=== PATIENT | female | born 1950 | race Caucasian/White ===

== ENCOUNTER 2020-06-08 06:46 | Day surgery (SDC) | payer MEDICARE ==
[2020-06-08 08:11] VITALS: BP 124/78
[2020-06-08 08:35] VITALS: BMI 31.6
[2020-06-08 08:37] VITALS: TEMP 97.8
[2020-06-08 08:46] LABS: Anion Gap 13 mmol/L (10-20); BUN (Urea Nitrogen) 13 mg/dL (9.8-20.1); Calc. Creatinine Clearance 96 mL/min (70-130); Calcium 9.3 mg/dL (7.8-10.44); Carbon Dioxide 27 mmol/L (23-31); Chloride 107 mmol/L (98-107); Glucose 101 mg/dL (80-115); Sodium 143 mmol/L (136-145)
[2020-06-08 08:55] LABS: SARS-CoV-2 NAA Rapid Test Not Detected (NotDetected)
[2020-06-08] MEDS ORDERED: PROPOFOL 20 ML ONE (09:00)
[2020-06-08] MEDS ORDERED: Lidocaine 1% PF 5 ML VIAL ONE (09:00)
[2020-06-08] MEDS ORDERED: FLU VACC QS2020-21(65YR UP)/PF 240 MCG/0.7 ML SYRINGE IM ONE (09:15)
[2020-06-08 10:27] LABS: #Eosinphils 0.1 10x3/uL (0.0-0.5); #Monocytes 0.5 10x3/uL (0.0-1.1); #Neutrophils 1.6 10x3/uL (1.5-8.4); %Basophils 0.5 % (0.0-2.0); %Eosinophils 2.7 % (0.0-6.0); %Lymphocytes 40.6 % (18.0-47.0); %Monocytes 13.4 % (0.0-10.0); %Neutrophils 42.5 % (40.0-75.0); Hemoglobin 13.1 g/dL (12.0-15.5); Mean Corpuscular HGB CONC 31.9 g/dL (32.0-36.0); Mean Corpuscular Hemoglobin 28.8 pg (27.0-33.0); Mean Corpuscular Volume 90.3 fl (81.6-98.3); Platelet Count 250 10x3/uL (150-450); RBC Distribution Width 13.6 % (11.5-14.5); Red Blood Cell (RBC) Count 4.55 10x6/uL (3.90-5.03); White Blood Cell (WBC) Count 3.7 10x3/uL (3.5-10.5)
[2020-06-08 10:36] LABS: ALT (SGPT) 14 U/L (8-55); AST (SGOT) 15 U/L (5-34); Albumin 4.2 g/dL (3.4-4.8); Alkaline Phosphatase 79 U/L (40-110); Bilirubin, Total 0.5 mg/dL (0.2-1.2); Globulin 2.8 g/dL (2.4-3.5)
[2020-06-08 10:42] LABS: INR-International Normal Ratio 1.1; PTT 31.4 sec (22.0-33.0); Prothrombin Time 11.1 sec (9.5-12.1)
== END 2020-06-08 10:30 | disposition home or self-care (01) ==
LOC: CSHSDC 06:46
PROVIDERS: ATTEND Specialist
DX: I48.0 Paroxysmal atrial fibrillation (principal); E78.5 Hyperlipidemia, unspecified; I25.10 Atherosclerotic heart disease of native coronary artery without angina pectoris; K21.9 Gastro-esophageal reflux disease without esophagitis; E66.9 Obesity, unspecified; Z79.899 Other long term (current) drug therapy; Z79.01 Long term (current) use of anticoagulants; Z79.84 Long term (current) use of oral hypoglycemic drugs; Z20.822 Contact with and (suspected) exposure to COVID-19
CPT/HCPCS: 71045; 80053; 85025; 85610; 85730; 92960; 93005; U0002; 93010; J2704

== ENCOUNTER → 2020-06-11 | Day surgery (SDC) | payer MEDICARE ==
[~2020-06-11] MED LIST: Acetaminophen 500 MG TAB ONE; Adenosine 6 MG/2 ML VIAL ONE; Fentanyl 100 MCG/2 ML VIAL ONE; Heparin 10,000 UNITS/ 10 ML VIAL ONE; Lidocaine 1% (PF) 30 ML VIAL ONE; Lidocaine 1% PF 5 ML VIAL ONE; Midazolam HCl 2 mg/2 ml Vial ONE; Nitroglycerin 50 MG/250 ML BOT 250 ML ONE; Ondansetron PF 4 MG/2 ML Vial ONE; Verapamil 5 MG/2 ML VIAL ONE; hydrALAZINE 20 MG/ML VIAL ONE
[2020-06-11 12:02] VITALS: BMI 31.7
[2020-06-11 12:03] VITALS: BP 154/93; TEMP 96.9
== END ==
LOC: CSHCCL 11:11
PROVIDERS: ATTEND Specialist
DX: I25.119 Atherosclerotic heart disease of native coronary artery with unspecified angina pectoris (principal); I48.0 Paroxysmal atrial fibrillation; E78.5 Hyperlipidemia, unspecified; E66.9 Obesity, unspecified; Z95.5 Presence of coronary angioplasty implant and graft
CPT/HCPCS: 36140; 93458; 99152; 99153; C1760; J0153; J0360; J1644; J2001; J2250; J2405; J3010

== ENCOUNTER 2021-01-08 18:43 | Emergency (ER) | payer MEDICARE ==
[2021-01-08 19:49] LABS: Hemoglobin 10.7 g/dL (12.0-15.5); Mean Corpuscular HGB CONC 31.9 g/dL (32.0-36.0); Mean Corpuscular Hemoglobin 29.8 pg (27.0-33.0); Mean Corpuscular Volume 93.3 fl (81.6-98.3); Platelet Count 173 10x3/uL (150-450); Red Blood Cell (RBC) Count 3.59 10x6/uL (3.90-5.03)
[2021-01-08 20:04] LABS: ALT (SGPT) 13 U/L (8-55); AST (SGOT) 20 U/L (5-34); Albumin 4.2 g/dL (3.4-4.8); Alkaline Phosphatase 68 U/L (40-110); Anion Gap 15 mmol/L (10-20); BUN (Urea Nitrogen) 13 mg/dL (9.8-20.1); Bilirubin, Total 0.5 mg/dL (0.2-1.2); Calc. Creatinine Clearance 0 mL/min (70-130); Calcium 8.8 mg/dL (7.8-10.44); Carbon Dioxide 23 mmol/L (23-31); Chloride 108 mmol/L (98-107); Globulin 2.5 g/dL (2.4-3.5); Glucose 104 mg/dL (80-115); Potassium 3.9 mmol/L (3.5-5.1); Protein, Total 6.7 g/dL (5.8-8.1); Sodium 142 mmol/L (136-145)
[2021-01-08 20:28] LABS: Band 1 % (5-11); Lymphocytes 15 % (21-51); Monocytes 16 % (0-10); Neutrophil 68 % (42-75)
[2021-01-08 20:29] LABS: RBC Morphology Normal
[2021-01-08 20:30] LABS: Platelet Morphology Comment Appears Adequate
== END 2021-01-08 21:59 | disposition home or self-care (01) ==
LOC: CSHERS 18:43
DX: R07.2 Precordial pain (principal); I48.91 Unspecified atrial fibrillation
CPT/HCPCS: 36415; 71045; 80053; 83880; 84443; 85025; 93005; 93010

== ENCOUNTER 2022-09-17 09:43 | Outpatient (CLI) | payer MEDICARE ==
[2022-09-17] MEDS ORDERED: Iopamidol 370 76% 100 ML VIAL ONE (11:07)
== END 2022-09-17 09:44 | disposition home or self-care (01) ==
LOC: CSHCT 09:43
PROVIDERS: ATTEND Family Medicine
DX: N39.0 Urinary tract infection, site not specified (principal); R91.8 Other nonspecific abnormal finding of lung field; K57.30 Diverticulosis of large intestine without perforation or abscess without bleeding; K59.00 Constipation, unspecified; Z90.710 Acquired absence of both cervix and uterus
CPT/HCPCS: 74178; 82565; Q9967

== ENCOUNTER 2023-01-29 09:40 | Outpatient (CLI) | payer MEDICARE | END 2023-01-29 09:41 | disposition home or self-care (01) | LOC: CSHMAMMO 09:40 | PROVIDERS: ATTEND Family Medicine | DX: M85.80 Other specified disorders of bone density and structure, unspecified site (principal); Z78.0 Asymptomatic menopausal state | CPT/HCPCS: 77080 ==

== ENCOUNTER 2023-03-03 08:34 | Outpatient (CLI) | payer MEDICARE ==
[2023-03-03] MEDS ORDERED: Iopamidol 300 61% 100 ML VIAL FS ONE (11:29)
== END 2023-03-03 08:35 | disposition home or self-care (01) ==
LOC: CSHCT 08:34
PROVIDERS: ATTEND Family Medicine
DX: R91.1 Solitary pulmonary nodule (principal); I25.10 Atherosclerotic heart disease of native coronary artery without angina pectoris
CPT/HCPCS: 71270; 82565

== ENCOUNTER 2025-01-11 09:04 | Outpatient (CLI) | payer MEDICARE | END 2025-01-11 09:05 | disposition home or self-care (01) | LOC: CSHWCC 09:04 | PROVIDERS: ATTEND Nurse Practitioner Family | DX: L89.892 Pressure ulcer of other site, stage 2 (principal); L20.9 Atopic dermatitis, unspecified | CPT/HCPCS: 97597; G0463; 99213 ==

== ENCOUNTER 2025-01-25 08:37 | Outpatient (CLI) | payer MEDICARE | END 2025-01-25 08:38 | disposition home or self-care (01) | LOC: CSHWCC 08:37 | PROVIDERS: ATTEND Nurse Practitioner Family | DX: L89.892 Pressure ulcer of other site, stage 2 (principal); L20.9 Atopic dermatitis, unspecified | CPT/HCPCS: 97597 ==

== ENCOUNTER 2025-01-29 20:24 | Emergency (ER) | payer MEDICARE ==
[2025-01-29 21:39] LABS: Hematocrit 36.9 % (34.9-44.5); Hemoglobin 12.5 g/dL (12.0-15.5); Mean Corpuscular Hemoglobin 30.6 pg (27.0-33.0); Mean Corpuscular Volume 90.2 fL (81.6-98.3); Platelet Count 181 10x3/uL (150-450); Red Blood Cell (RBC) Count 4.09 10x6/uL (3.90-5.03); White Blood Cell (WBC) Count 4.23 10x3/uL (3.5-10.5)
[2025-01-29 21:47] LABS: ALT (SGPT) 19 U/L (Less than 34); AST (SGOT) 28 U/L (11-34); Albumin 4.1 g/dL (3.1-4.5); Alkaline Phosphatase 61 U/L (40-110); Anion Gap 10 mmol/L (10-20); BUN (Urea Nitrogen) 15 mg/dL (9.8-20.1); Bilirubin, Total 0.5 mg/dL (0.3-1.2); Calc. Creatinine Clearance 0 mL/min (70-130); Calcium 9.0 mg/dL (7.8-10.44); Carbon Dioxide 26 mmol/L (23-31); Chloride 106 mmol/L (98-107); Globulin 3.2 g/dL (2.4-3.5); Glucose 115 mg/dL (83-110); Potassium 3.8 mmol/L (3.5-5.1); Sodium 138 mmol/L (136-145)
[2025-01-29 22:13] LABS: Anisocytosis SLIGHT = 6-15 cells (100X) (0-5/hpf); MDiff Complete? YES; Macrocytosis SLIGHT = 6-15 cells (100X) (0-5/hpf); Ovalocytes SLIGHT = 2-5 cells (100X) (0-1/hpf); Platelet Adequacy Comment Appears Adequate; Poikilocytosis SLIGHT = 6-15 cells (100X) (0-5/hpf)
[2025-01-29 22:31] LABS: Troponin I Less than 0.010 ng/mL (< 0.028)
== END 2025-01-30 01:03 | disposition left against medical advice (07) ==
LOC: CSHERS 20:24
DX: R29.810 Facial weakness (principal); R47.81 Slurred speech; R29.702 NIHSS score 2; Z86.73 Personal history of transient ischemic attack (TIA), and cerebral infarction without residual deficits; I10 Essential (primary) hypertension; E03.9 Hypothyroidism, unspecified; Z79.890 Hormone replacement therapy; Z79.82 Long term (current) use of aspirin; Z79.899 Other long term (current) drug therapy; Z53.29 Procedure and treatment not carried out because of patient's decision for other reasons
CPT/HCPCS: 70450; 70496; 70498; 71045; 80053; 84484; 85025; 93005

== ENCOUNTER 2025-01-30 12:50 | Emergency (ER) | payer MEDICARE ==
[2025-01-30 13:54] LABS: Hematocrit 39.7 % (34.9-44.5); Hemoglobin 13.2 g/dL (12.0-15.5); Mean Corpuscular Hemoglobin 30.1 pg (27.0-33.0); Mean Corpuscular Volume 90.4 fL (81.6-98.3); Platelet Count 186 10x3/uL (150-450); Red Blood Cell (RBC) Count 4.39 10x6/uL (3.90-5.03); White Blood Cell (WBC) Count 3.85 10x3/uL (3.5-10.5)
[2025-01-30] MEDS ORDERED: hydrALAZINE 20 MG/ML VIAL ONE (13:54)
[2025-01-30 14:01] LABS: INR-International Normal Ratio 1.0; PTT 28.1 sec (22.0-33.0); Prothrombin Time 11.0 sec (9.5-12.1)
[2025-01-30 14:12] LABS: ALT (SGPT) 22 U/L (Less than 34); AST (SGOT) 24 U/L (11-34); Albumin 4.4 g/dL (3.1-4.5); Alkaline Phosphatase 59 U/L (40-110); Anion Gap 13 mmol/L (10-20); BUN (Urea Nitrogen) 13 mg/dL (9.8-20.1); Bilirubin, Total 0.8 mg/dL (0.3-1.2); Calc. Creatinine Clearance 0 mL/min (70-130); Calcium 9.1 mg/dL (7.8-10.44); Carbon Dioxide 24 mmol/L (23-31); Chloride 107 mmol/L (98-107); Globulin 3.0 g/dL (2.4-3.5); Glucose 99 mg/dL (83-110); Potassium 4.2 mmol/L (3.5-5.1); Sodium 140 mmol/L (136-145)
[2025-01-30 14:15] LABS: Troponin I Less than 0.010 ng/mL (< 0.028)
[2025-01-30 14:24] LABS: RBC Morphology Within Normal Limits
[2025-01-30 14:25] LABS: MDiff Complete? YES; Platelet Adequacy Comment Appears Adequate
[2025-01-30 14:29] LABS: Acetaminophen Less than 10 mcg/mL (Less than 10); Salicylate Less than 8.0 mg/dL (Less than 8.0)
[2025-01-30 14:44] LABS: Cocaine Metabolite Screen Negative (Negative); THC/Cannabinoid Screen Negative (Negative); Tricyclic Screen Negative (Negative)
== END 2025-01-30 16:10 | disposition home or self-care (01) ==
LOC: CSHERS 12:50
DX: I63.9 Cerebral infarction, unspecified (principal); I10 Essential (primary) hypertension; R29.701 NIHSS score 1; Z86.73 Personal history of transient ischemic attack (TIA), and cerebral infarction without residual deficits
CPT/HCPCS: 70450; 71045; 80053; 80306; 80307; 84484; 85025; 85610; 85730; 93005; J0360; 70496; 70498; 96374

== ENCOUNTER 2025-02-01 13:38 | Outpatient (CLI) | payer MEDICARE | END 2025-02-01 13:39 | disposition home or self-care (01) | LOC: CSHWCC 13:38 | PROVIDERS: ATTEND Nurse Practitioner Family | DX: L89.892 Pressure ulcer of other site, stage 2 (principal); L20.9 Atopic dermatitis, unspecified | CPT/HCPCS: 99213; G0463 ==

== ENCOUNTER 2025-02-15 09:13 | Outpatient (CLI) | payer MEDICARE | END 2025-02-15 09:14 | disposition home or self-care (01) | LOC: CSHWCC 09:13 | PROVIDERS: ATTEND Nurse Practitioner Family | DX: L89.892 Pressure ulcer of other site, stage 2 (principal); L20.9 Atopic dermatitis, unspecified | CPT/HCPCS: 99212; G0463 ==